=== PATIENT | female | born 1960 | race Caucasian/White ===

== ENCOUNTER → 2020-01-23 08:02 | Outpatient (CLI) | payer OTHER, SELFPAY ==
--- NOTE | 2020-01-23 | DI.RAD.S_ITS ---
PROCEDURE: XR LUMBAR SPINE 2-3V INDICATIONS: CHRONIC LOW BACK PAIN TECHNIQUE: 3 views of the lumbar spine were acquired. COMPARISON: None. FINDINGS: Bones: 5 lwm-hko-yhssadt vertebrae are present. No vertebral body compression fractures. No suspicious bony lesions. Minimal to mild dextroconvex scoliotic curvature is seen. No focal AP alignment abnormality is seen. The disc heights are well preserved. Lower lumbar spine facet arthropathy is seen. Sacroiliac joint degenerative changes can be seen. Soft tissues: Overlying bowel gas pattern is normal. No suspicious soft tissue calcifications. IMPRESSION: Age-appropriate lumbar spine degenerative changes are seen, with facet arthropathy. The disc heights are well preserved. Dictated by: Ez Holloway M.D. on 01/23/2020 at 8:35 Approved by: Ez Holloway M.D. on 01/23/2020 at 8:36
== END ==
PROVIDERS: Referring Provider Chiropractor; Visit Provider Chiropractor
DX: M54.5 Low back pain (principal); M47.816 Spondylosis without myelopathy or radiculopathy, lumbar region; G89.29 Other chronic pain
CPT/HCPCS: 72100

== ENCOUNTER → 2020-08-17 17:08 | Outpatient (CLI) | payer OTHER, SELFPAY ==
--- NOTE | 2020-08-17 | DI.MG.S_ITS ---
BILATERAL DIGITAL SCREENING MAMMOGRAM 3D/2D WITH CAD: 08/17/2020 CLINICAL: Routine screening. Comparison is made to exam dated: 06/21/2013 [facility]. There are scattered fibroglandular elements in both breasts. Current study was also evaluated with a Computer Aided Detection (CAD) system. There are benign vascular calcifications in both breasts. No significant masses, calcifications, or other findings are seen in either breast. There has been no significant interval change. IMPRESSION: BENIGN There is no mammographic evidence of malignancy. A 1 year screening mammogram is recommended. This exam was interpreted at Station ID: [id number]. NOTE: For mammograms, a report in lay terms will be sent to the patient. Approximately 15% of breast malignancies will not be visualized mammographically. In the management of a palpable breast mass, a negative mammogram must not discourage biopsy of a clinically suspicious lesion. Electronically Signed By: Salvador watson/iona:08/18/2020 08:13:55 letter sent: Normal Exam ACR BI-RADS Category 2: Benign Finding(s) 3342F
== END ==
PROVIDERS: PCP Student in an Organized Health Care Education/Training Program; Referring Provider Student in an Organized Health Care Education/Training Program; Visit Provider Student in an Organized Health Care Education/Training Program
DX: Z12.31 Encounter for screening mammogram for malignant neoplasm of breast (principal)
CPT/HCPCS: 77063; 77067

== ENCOUNTER → 2022-02-13 15:57 | Outpatient (CLI) | payer OTHER, SELFPAY ==
[2022-02-13 17:35] LABS: COVID19 -Nasal RAPID Negative (Negative)
== END ==
PROVIDERS: PCP Internal Medicine; Visit Provider Obstetrics & Gynecology
DX: Z20.822 Contact with and (suspected) exposure to COVID-19 (principal); Z01.812 Encounter for preprocedural laboratory examination
CPT/HCPCS: 87635

== ENCOUNTER 2022-02-14 06:23 | Day surgery (SDC) | payer OTHER, SELFPAY ==
[2022-02-08 10:00] VITALS: BMI 23.6
[2022-02-14] VITALS (7 sets, daily range): BP systolic 107–144; BP diastolic 69–90; PULSE 58–85; RESP 10–19; TEMP 36.3–36.4; O2SAT 99–100; BMI 23.6
--- NOTE | 2022-02-14 | PATH_ITS ---
[facility] Accession Number: [id number] . 01 Material submitted: . PART A: cervix - ECTOCERVIX TAGGED AT 1200 PART B: endocervix - ENDOCERVIX - TAGGED AT 0600 . 01 Diagnosis: A. Uterine Cervix, Ectocervix Tagged at 12 o'clock, LEEP Excision: Squamous dysplasia involving areas of atrophy most consistent with focal high-grade squamous intraepithelial lesion (WILL-2/moderate dysplasia), see microscopic description. Negative for glandular dysplasia and invasive carcinoma. Changes suggestive of prior biopsy site also present. Surgical margins: Negative for dysplasia and malignancy. . B. Uterine Cervix, Endocervix Tagged at 6 o'clock, LEEP Excision: Benign endocervical mucosa. Negative for significant dysplasia and malignancy. Surgical margins: Negative for dysplasia and malignancy. . . . . . [facility] 02/25/2022 1715 Local . 01 Electronically signed: . Nirali Meek MD, Pathologist NPI- [id number] . 01 Gross description: . A. The specimen is received in formalin labeled with the patient's name and ectocervix tagged at 12 o'clock, and consists of an oriented circular fragment of cervix with a suture at 12 o'clock per the requisition and measuring 1.2 cm from 12 to 6 o'clock, 1.2 cm from 3 to 9 o'clock, and is excised to a depth of 0.5 cm. The cervical os is circular and measures 0.3 cm in diameter. The cervix is pink-carcamo and slightly congested. The endocervical margin is inked orange while the remaining stromal margins are inked blue. The specimen is radially sectioned and submitted entirely as follows: . A1: 12 to 3 o'clock. A2: 3 to 6 o'clock. A3: 6 to 9 o'clock. A4: 9 to 12 o'clock. . B. The specimen is received in formalin labeled with the patient's name and endocervix tagged at 6 o'clock, and consists of an oriented circular fragment of cervix with a suture designating 6 o'clock per the requisition and measuring 1.0 cm from 12 to 6 o'clock, 0.9 cm from 3 to 9 o'clock, and is excised to a depth of 0.3 cm. No ectocervix is identified. The cervical os is slit-like and measures 0.4 cm in diameter. The concave surface is inked black while the convex surface is inked orange at the endocervical margin and blue for the remaining stromal margins. The specimen is radially sectioned and submitted entirely as follows: . B1: 12 to 3 o'clock. B2: 3 to 6 o'clock. B3: 6 to 9 o'clock. B4: 9 to 12 o'clock. ([id number]) /MRV 02/15/2022 [facility]0 Local . 01 Microscopic: . Part A: Multiple deeper levels have been examined, and p16 immunostain was performed on block A3 showing focal, abnormal overexpression on the area of interest. This result along with the morphology, supports the diagnosis. . * This test was developed and its performance characteristics determined by [employer]. It has not been cleared or approved by the U.S. Food and Drug Administration. The FDA has determined that such clearance or approval is not necessary. This test is used for clinical purposes. It should not be regarded as investigational or for research. . 01 Pathologist provided ICD-10: N87.1 . 01 CPT . 711760, 961218, P26045 Specimen Comment: A courtesy copy of this report has been sent to [phone] Performed at: 01 [facility] [address], [place], [place] [id number] MD Yoshi Helton MD Phone: [phone]
--- NOTE | 2022-02-14 07:21 | SUR.OPER ---
Lithotomy on padded OR bed, head on pillow, arms secured on padded arm boards at <90 degrees abduction. Legs secured in padded yellow fins stirrups.
[2022-02-14] MEDS: LACTATED RINGERS 1,000 ML 100 ML IV (07:49)
--- NOTE | 2022-02-14 07:56 | P.HP_ITS ---
History of Present Illness History of Present Illness Date Patient Seen: 02/14/22 Time Patient Seen: 07:56 Chief complaint: LEEP CONE BX OF CERVIX Narrative: Patient is a 61-year-old 8 para 6 with high-grade ROMANA on Pap and with a negative ECC. Transformation zone not visualized on colposcopy. Due to this discrepancy patient is here for LEEP cone biopsy of the cervix. Patient History Medical History (Updated 01/08/22 @ 16:39 by Kika Reyes MD) Insomnia, unspecified Insomnia, unspecified Obstructive sleep apnea of adult Snoring Surgical History Status post appendectomy Family & Social History Family History Father Age: 80 Diabetes mellitus Heart disease Grandfather Heart disease Social History: household members significant other lives independently Yes caregiver/support person No Tobacco & Substance use: Smoking Status Never smoker alcohol intake current alcohol intake frequency a few times a week Substance Use Type does not use Meds Home Medications and Allergies Home Medications Medication Instructions Recorded Confirmed Type cholecalciferol (vitamin D3) 250 10,000 unit PO #0 tabs 12/20/15 01/08/22 History mcg (10,000 unit) tablet multivitamin (Multiple Vitamins 1 tab PO QDAY #0 tabs 12/20/15 02/14/22 History tablet) omega-3 fatty acids 500 mg-dha 270 ##0 12/20/15 01/08/22 History mg-epa 135 mg capsule (Ovega-3) Resmed AirSense 10 Auto CPAP #1 ea 05/19/18 02/14/22 History valacyclovir 1 gram tablet 1 02/14/22 History (Valtrex) Allergies Allergy/AdvReac Type Severity Reaction Status Date / Time No Known Drug Allergies Allergy Verified 02/14/22 07:22 Exam Vital Signs (past 8 hours): - 02/14/22 07:30 Temperature 97.6 F Pulse Rate 85 Respiratory Rate 18 Blood Pressure 144/90 H Pulse Oximetry 100 Oxygen Delivery Method Room Air Oxygen Delivery Method Room Air Narrative Exam Narrative: HEENT: No thyromegaly, no anterior cervical or supraclavicular lymphadenopathy. Lungs:Clear to auscultation bilaterally, no wheezes. Cardiovascular: Regular rate and rhythm, no murmurs, rubs, or gallops. Abdomen: Well-healed scars. No hepatosplenomegaly. No masses palpable. External genitalia: Normal Vagina: Normal Cervix: Normal Bimanual exam: 5 Week size uterus. Mobile. Extremities: No edema Assessment & Plan Assessment & Plan narrative: Assessment: 61-year-old 8 para 6 with a discrepancy between Pap smear with high- grade ROMANA and ECC which was normal Plan: LEEP cone biopsy of the cervix The risks, benefits, and alternatives to the procedure were explained to the patient. The risks including bleeding and infection. She understands these risks and agrees to proceed. A full par Q was held and consent form was signed. COVID-19 COVID-19 status: Negative Result date/Date tested (Pos, Neg/Pending): 02/13/22 Time Spent With Patient Time with patient: less than 30 minutes Critical Care time: I spent a total of [] minutes of critical care time on this patient's care today; this time is exclusive of procedural time.
--- NOTE | 2022-02-14 07:59 | PM.PREOP ---
Pre-operative Note COVID-19 COVID-19 status: Negative Result date/Date tested (Pos, Neg/Pending): 02/13/22 Criteria for continued procedure: Non-surgical alternatives not available or appropriate per current SOC Interval Note History & Physical reviewed/Exam performed by Physician: Yes Changes to H&P: No H&P completed within 30 days and has changed as indicated here:: 02/14/22
[2022-02-14] MEDS: POTASSIUM IODIDE/IODINE 473 ML SOLUTION TOP (08:26)
--- NOTE | 2022-02-14 09:00 | P.OP_ITS ---
Operative Date/Time/Diagnoses Date of procedure: 02/14/22 Time of procedure: 09:00 Pre-op diagnosis: High-grade ROMANA on Pap Negative ECC Post-op diagnosis: same Procedure & Clinicians Procedure: Procedures Operation Date: 02/14/22 07:45 Actual Procedure Side Surgeon james COLLIER cone bx of cervix Kika Reyes MD Indications: High-grade ROMANA on Pap, negative ECC, transformation zone not visualized Surgeon: Kika Reyes Anesthesia Type: General (LMA) Operative Notes Findings: No Lugol's light areas on the ectocervix Closure Type: not applicable Specimen(s): other (Cone bx specimen, Ectocervix tagged at 12 o'clock, Endocervix tagged at 6 o'clock) Estimated blood loss (mL): 5 Blood products transfused: none Procedure in detail: After informed consent obtained, the patient was taken to the operating room and placed in the dorsal supine position. After LMA general anesthesia was achieved, she was placed in the dorsal lithotomy position, and prepped and draped in the usual sterile fashion. A time-out was performed. A plastic coated bivalve speculum was placed into the vagina. A plastic coated single- tooth tenaculum was placed on the anterior lip of the cervix. Lugol's was applied to the cervix. There were no Lugol's light areas on the ectocervix visualized. Using the 1.5 cm loop, the ectocervix and endocervix surrounding the cervical os were excised using settings at 80 cut and 60 cautery. Using a 1 cm loop, the endocervix was excised. Using the ball cautery, the base of the cone was cauterized for hemostasis. Hemostasis was achieved. The plastic coated single-tooth tenaculum was removed from the anterior lip of the cervix. The plastic coated bivalve speculum was removed from the vagina. The specimen was tagged at 12:00 o,clock on the ectocervix and 6:00 o,clock on the endocervix. Sponge, lap and instrument count is correct x 2. The patient tolerated the procedure well and was taken to PACU in stable condition. Complications: none Post-operative Condition: stable Disposition: PACU Plan for aftercare: Home after recovery
== END 2022-02-14 09:25 | disposition home or self-care (01) ==
PROVIDERS: PCP Internal Medicine; Referring Provider Obstetrics & Gynecology; Visit Provider Obstetrics & Gynecology
PROC: 0UBC7ZZ Excision of Cervix, Via Natural or Artificial Opening (ICD-10-PCS; CPT 57522; principal; 2022-02-14 07:45)
DX: N87.1 Moderate cervical dysplasia (principal)
CPT/HCPCS: 57522; J1100; J2250; J2405; J2704; J3010

== ENCOUNTER → 2022-12-20 15:34 | Outpatient (CLI) | payer OTHER, SELFPAY ==
--- NOTE | 2022-12-20 15:37 | DI.RAD.S_ITS ---
PROCEDURE: XR KNEE RT 3V INDICATIONS: bilateral knee pain TECHNIQUE: 3 views of the knee were acquired. COMPARISON: None. FINDINGS: Bones: No fractures or dislocations. No suspicious bony lesions. Minimal to mild medial as well as patellofemoral as well as minimal lateral compartment narrowing. Minimal periarticular osteophytes. No erosions. Soft tissues: Mild joint effusion. No suspicious soft tissue calcifications. IMPRESSION: Minimal to mild tricompartmental arthritic change. Dictated by: Luz Elena Villarreal M.D. on 12/20/2022 at 19:40 Approved by: Luz Elena Villarreal M.D. on 12/20/2022 at 19:41
--- NOTE | 2022-12-20 15:37 | DI.RAD.S_ITS ---
PROCEDURE: XR KNEE LT 3V INDICATIONS: bilateral knee pain TECHNIQUE: 3 views of the knee were acquired. COMPARISON: None. FINDINGS: Bones: No fractures or dislocations. No suspicious bony lesions. Ceau-zc-spoywssn medial and patellofemoral with minimal lateral compartment narrowing. Minimal periarticular osteophytes. No erosions. Soft tissues: Mild joint effusion. No suspicious soft tissue calcifications. IMPRESSION: Tricompartmental arthritic change most severe medially. Dictated by: Luz Elena Villarreal M.D. on 12/20/2022 at 19:39 Approved by: Luz Elena Villarreal M.D. on 12/20/2022 at 19:40
== END ==
PROVIDERS: PCP Family Medicine; Referring Provider Family Medicine; Visit Provider Family Medicine
DX: M25.561 Pain in right knee (principal); M25.562 Pain in left knee; M25.461 Effusion, right knee; M25.462 Effusion, left knee
CPT/HCPCS: 73562

== ENCOUNTER → 2023-01-28 10:22 | Outpatient (CLI) | payer OTHER, SELFPAY ==
[2023-01-28 11:02] LABS: Add Manual Diff / Slide Review NO; Basophils Absolute Auto 0 /uL (0-100); Eosinophils Absolute Auto 100 /uL (0-450); Eosinophils Percent Auto 3.5 % (2-4); Hematocrit 43.7 % (36-46); Hemoglobin 14.8 g/dL (12.0-16.0); Lymphocytes Absolute Auto 2000 /uL (1100-4500); Lymphocytes Percent Auto 45.9 % (25-40); Mean Corpuscular HGB Conc 33.8 % (30-36); Mean Corpuscular Hemoglobin 31.3 PG (26-34); Mean Corpuscular Volume 92.5 fL (80-100); Monocytes Absolute Auto 400 /uL (0-900); Neutrophils Absolute Auto 1700 /uL (1500-7000); Neutrophils Percent Auto 40.6 % (50-75); Platelet Count 217 X10^3/uL (150-400); Red Blood Cell Count 4.73 X10^6/uL (4.0-5.2); Red Cell Distribution Width 13.7 % (11.6-14.8); White Blood Cell Count 4.3 X10^3/uL (4.5-11.0)
[2023-01-28 11:23] LABS: Alanine Aminotransferase 66 IU/L (<35); Albumin 4.8 g/dL (3.5-5.0); Albumin Globulin Ratio 1.3 (1.0-2.8); Alkaline Phosphatase 97 U/L (38-126); Aspartate Aminotransferase 38 IU/L (14-36); BUN Creatinine Ratio 20.3 (6-22); Bilirubin Total 0.5 mg/dL (0.2-1.3); Blood Urea Nitrogen 12 mg/dL (7-17); Calcium 10.1 mg/dL (8.4-10.2); Carbon Dioxide 24 mmol/L (22-32); Chloride 103 mmol/L (98-107); Cholesterol 266 mg/dL (140-199); Estimated Glomerular Filt Rate > 60 mL/min (>60); Globulin 3.7 g/dL (1.7-4.1); Glucose 104 mg/dL (80-110); HDL Cholesterol 45 mg/dL (40-60); HEMOLYSIS 16 (0-50); LDL Cholesterol Calculated 200 mg/dL (<100); Potassium 4.3 mmol/L (3.4-5.1); Sodium 139 mmol/L (137-145); Total Protein 8.5 g/dL (6.3-8.2); Triglycerides 104 mg/dL (35-150)
[2023-01-28 11:51] LABS: Thyroid Stimulating Hormone 1.05 uIU/mL (0.47-4.68)
[2023-01-28 12:34] LABS: Estradiol, Total 16.8 pg/mL
[2023-02-04 23:23] LABS: Percent Free Testosterone 1.38 % (0.50-2.80); Testosterone Free 0.21 ng/dL (0.10-0.85); Testosterone Total 15.4 ng/dL (7.0-40.0)
== END ==
PROVIDERS: PCP Family Medicine; Referring Provider Family Medicine; Visit Provider Family Medicine
DX: E66.9 Obesity, unspecified (principal); E88.810 Metabolic syndrome; E78.00 Pure hypercholesterolemia, unspecified; R73.03 Prediabetes
CPT/HCPCS: 36415; 80053; 80061; 82670; 84402; 84403; 84443; 85025

== ENCOUNTER 2023-10-09 11:28 | Day surgery (SDC) | payer OTHER, SELFPAY ==
[2023-10-07 08:44] VITALS: BMI 26.2
--- NOTE | 2023-10-09 | PATH_ITS ---
[facility] Accession Number: [id number] No. of containers..01 Tissue . 01 Material submitted: . ectocervix - ECTOCERVIX . 01 Diagnosis: ECTOCERVIX (SUBMITTED TWO ORIENTED TISSUE FRAGMENTS): Oriented cone fragment that measures 1.3 x 1.3 x 0.6 cm at gross examination: - Squamous mucosa present in the 12-3 and 9-12 o'clock quadrants. - No dysplasia identified; atrophic change present. - No dysplasia identified at tissue margins. - No invasive tumor identified. . Oriented fragment that measures 1.5 x 1.1 x 0.8 cm at gross examination: - Small focus of high-grade squamous intraepithelial lesion / WILL-2 in the 3 to 6 o'clock quadrant. - Separate regions of low-grade squamous intraepithelial lesion / WILL-1 in the 12-3, 3-6, 6-9, and 9-12 o'clock quadrants. - No well preserved endocervical glandular epithelium is identified. - Low grade squamous intraepithelial lesion / WILL-1 is present at the green inked margin in the 12-3, 3-6, and 6-9 o'clock quadrants. - The orange-inked margin is negative for dysplasia. - Background atrophic change. - No invasive tumor identified. [facility] 10/16/2023 1634 Local . 01 Comment: The biopsy results correlate with Pap smear [id number]. . 01 Electronically signed: . Viry Christian MD, Pathologist NPI- [id number] . 01 Gross description: . Received in formalin with two patient identifiers and ectocervix, endocervix, are two oriented fragments of cervix. The fragment with the short suture is irregularly shaped and partially circular with a suture designating 6 o'clock per the requisition. There is ectocervix on the specimen which is pink-carcamo and wrinkled. The presumed endocervical margin is inked orange while the remaining stromal margins are inked blue. The specimen is radially sectioned. This first fragment measures 1.3 cm from 12-6, 1.3 cm from 3-9, and up to 0.6 cm thick. . The second fragment is intact and circular with a long suture designating 12 per the requisition, and measuring 0.8 cm from 12-6, 1.5 cm from 3-9, and 1.1 cm thick. Ectocervix is present and is pink and finely granular while the os is slit-like and measures 0.4 cm in diameter. The endocervical margin is inked orange while the remaining stromal margins are inked green, and the specimen is radially sectioned. Submitted entirely as follows: A1: First fragment 12-3. A2: First fragment 3-6. A3: First fragment 6-9. A4: First fragment 9-12. A5: Second fragment 12-3. A6: Second fragment 3-6. A7: Second fragment 6-9. A8: Second fragment 9-12. (AG:[id number]) /MRV 10/10/2023 155 Local . 01 Microscopic: . An immunohistochemical stain for p16 is performed to evaluate for block reactivity. The control stained with appropriate reactivity. . RESULTS: Blocks A1-A4 (first described fragment): P16: Negative for block immunostaining. . The absence of p16 block immunostaining mitigates against the presence of high risk HPV DNA in this biopsy. . Blocks A5-A8 (second described fragment): P16: Small focus of block immunostaining present in the 3 to 6 o'clock quadrant of the second described tissue fragment (A6). . P16 block immunostaining supports the presence of high risk HPV DNA in this biopsy. . . * This test was developed and its performance characteristics determined by [employer]. It has not been cleared or approved by the U.S. Food and Drug Administration. The FDA has determined that such clearance or approval is not necessary. This test is used for clinical purposes. It should not be regarded as investigational or for research. . 01 Pathologist provided ICD-10: N87.0, N87.1 . 01 CPT . 427234, G53343 Specimen Comment: A courtesy copy of this report has been sent to [phone] Performed at: 01 [facility] [address], [place], [place] [id number] MD Yoshi Helton MD Phone: [phone]
[2023-10-09 12:00] VITALS: BP 145/89; PULSE 76; RESP 16; TEMP 36.4; O2SAT 99; BMI 25.7
[2023-10-09] MEDS: LACTATED RINGERS 1,000 ML 42 ML IV (12:12)
--- NOTE | 2023-10-09 12:37 | P.HPOB_ITS ---
History of Present Illness History of Present Illness Reason for admission: other (Recurrent high-grade dysplasia of the cervix) Narrative: Escobar Dai is a 63 year old female 8 para 6 who presents for repeat LEEP cone biopsy of the cervix due to recurrent high-grade dysplasia. [facility] Medical History (Updated 10/07/23 @ 08:50 by Ekta Fisher RN) History of COVID-19 (11/17/21) Herpes (~1979) Papanicolaou smear of cervix with positive high risk human papilloma virus (HPV) test (~07/2020) Insomnia, unspecified Insomnia, unspecified Obstructive sleep apnea of adult Snoring Surgical History (Updated 06/22/23 @ 21:03 by Kika Reyes MD) Anesthesia H/O LEEP (~2021) Status post appendectomy (~1983) Family History (Updated 05/16/22 @ 21:42 by [place]) Father Age: 81 Diabetes mellitus Heart disease Grandfather Heart disease Mother Diabetes mellitus Heart disease Brother Heart disease Social History (Updated 06/25/18 @ 12:[address] [facility]) marital status: unmarried,living together details: partner Omega Allred, lives in [place]. She has 5 daughters, 1 son number of children: 6 household members: spouse lives independently: Yes caregiver/support person: No housing: house occupational status: employed Smoking Status: Never smoker second hand exposure: Yes (childhood ) alcohol intake: current substance use type: does not use Meds Home Medications and Allergies Home Medications Medication Instructions Recorded Confirmed Type cholecalciferol (vitamin D3) 250 10,000 unit PO DAILY #0 tabs 12/20/15 10/09/23 History mcg (10,000 unit) tablet multivitamin (Multiple Vitamins 1 tab PO QDAY #0 tabs 12/20/15 09/29/23 History tablet) omega-3 fatty acids 500 mg-dha 270 ##0 12/20/15 09/29/23 History mg-epa 135 mg capsule (Ovega-3) [place]APE 2,280 mg PO DAILY 12/20/22 09/29/23 History SPM ACTIVE 2 cap PO DAILY 12/20/22 09/29/23 History calcium carb,cit 300 mg-D3 200 1 tab PO 12/20/22 09/29/23 History unit-min no.34-genistein 13.5 mg tablet (Citracal Plus Bone Density Builder) lactobacillus cap PO 12/20/22 09/29/23 History hushc-jlxiic-gjcyadlp protein 15 billion cell-170 mg cap (Ultra Dang Plus) methyltetrahydrofolate glucos 1,330 mcg dfe PO 12/20/22 09/29/23 History uqhslsvd-zhq-dmsug-lut-dato703 PO 12/20/22 09/29/23 History [PhytoMulti] omega 4-hmf-okk-fish oil 290 cap PO 12/20/22 09/29/23 History mg-430 mg-1.4 gram capsule (EPA-DHA 720) vitamin B complex PO 12/20/22 09/29/23 History valacyclovir 1 gram tablet 1,000 mg PO DAILY #90 tabs 07/22/23 09/29/23 Rx Allergies Allergy/AdvReac Type Severity Reaction Status Date / Time amoxicillin [From Augmentin] Allergy Severe Hives Verified 10/09/23 11:58 clavulanic acid Allergy Severe Hives Verified 10/09/23 11:58 [From Augmentin] Exam Vital Signs (past 8 hours): - 10/09/23 12:00 Temperature 97.6 F Pulse Rate 76 Respiratory Rate 16 Blood Pressure 145/89 H Pulse Oximetry 99 Oxygen Delivery Method Room Air Oxygen Delivery Method Room Air Narrative Exam Narrative: HEENT: No thyromegaly, no anterior cervical or supraclavicular lymphadenopathy. Lungs:Clear to auscultation bilaterally, no wheezes. Cardiovascular: Regular rate and rhythm, no murmurs, rubs, or gallops. Abdomen: Well-healed scars. No hepatosplenomegaly. No masses palpable. External genitalia: Normal Vagina: Normal Cervix: Normal Bimanual exam: 6 Week size uterus. Extremities: No edema Assessment & Plan Assessment & Plan narrative: Assessment: 63-year-old 8 para 6 with recurrent high-grade dysplasia of the cervix Cervical stenosis Plan: LEEP cone biopsy of the cervix The risks, benefits, and alternatives to the procedure were explained to the patient. The risks including bleeding and infection. She understands these risks and agrees to proceed. A full par Q was held and consent form was signed
--- NOTE | 2023-10-09 12:39 | PM.PREOP ---
Pre-operative Note Interval Note History & Physical reviewed/Exam performed by Physician: Yes Changes to H&P: No H&P completed within 30 days and has changed as indicated here:: 10/09/23
--- NOTE | 2023-10-09 12:59 | SUR.OPER ---
Lithotomy on padded OR bed, head on pillow, arms secured on padded arm boards at <90 degrees abduction. Legs secured in padded yellow fins stirrups.
[2023-10-09] MEDS: POTASSIUM IODIDE/IODINE 473 ML SOLUTION 10 ML TOP (13:06)
[2023-10-09 13:40] VITALS: BP 108/70; PULSE 96; RESP 14; TEMP 36.4; O2SAT 93
--- NOTE | 2023-10-09 13:44 | P.OP_ITS ---
Operative Date/Time/Diagnoses Date of procedure: 10/09/23 Time of procedure: 13:45 Pre-op diagnosis: Recurrent high-grade dysplasia of the cervix Post-op diagnosis: same Procedure & Clinicians Procedure: Procedures Operation Date: 10/09/23 12:45 Actual Procedure Side Surgeon p LEEP Procedure cone biopsy of the cervix Kika Reyes MD Indications: Recurrent high-grade dysplasia Stenotic cervix Surgeon: Kika Reyes Anesthesia Type: General (LMA) Operative Notes Findings: Difficult to find the cervix Used an #11 blade to open the cervix Closure Type: primary Specimen(s): other (Ectocervix with stitch at 12:00 o'clock, endocervix with stitch at 6 o'clock) Estimated blood loss (mL): 15 Blood products transfused: none Procedure in detail: After informed consent was obtained, the patient was taken to the operating room where she was placed in the dorsal supine position. After adequate LMA general anesthesia was achieved, she was placed in the dorsal lithotomy position, and prepped and draped in the usual sterile fashion. A time-out was performed. A plastic coated bivalve speculum was placed into the vagina. The anterior lip of the cervix was grasped with a single-tooth tenaculum. It was difficult to find the cervical os. An 11 blade was used to open and adhesed area and the os was seen. Using the 15 mm loop, and settings at 80 cut and 60 cautery, the LEEP cone biopsy was done. Using the same loop a second specimen was obtained in the endocervix. The ectocervix was tagged at 12:00 p.m. with a suture. The endocervix was tagged at 6:00 a.m. with a short suture. The ball cautery was used for hemostasis. At the 9 to 11 o'clock position there was still some bleeding. A whip stitch interlocking suture was placed with 2-0 chromic and hemostasis was achieved. A piece of Gelfoam was placed into the base of the cone. Using 2-0 chromic, a loose suture was placed between 3 and 9:00 a.m. on the cervix to keep the Gelfoam in place. Hemostasis was achieved. The single- tooth tenaculum was removed from the anterior lip of the cervix. The bivalve speculum was removed from the vagina. All personnel in the room were using 3-0 masks. There were 3 sources of suction during the LEEP cone biopsy. Complications: none Post-operative Condition: stable Disposition: PACU Plan for aftercare: Home after recovery
[2023-10-09 13:45] VITALS: BP 115/75; PULSE 92; RESP 13; O2SAT 98
[2023-10-09 13:51] VITALS: BP 131/87; PULSE 89; RESP 20; O2SAT 99
== END 2023-10-09 14:01 | disposition home or self-care (01) ==
PROVIDERS: PCP Family Medicine; Referring Provider Obstetrics & Gynecology; Visit Provider Obstetrics & Gynecology
PROC: 0UBC7ZZ Excision of Cervix, Via Natural or Artificial Opening (ICD-10-PCS; CPT 57522; principal; 2023-10-09 12:45)
DX: N87.0 Mild cervical dysplasia (principal); N87.1 Moderate cervical dysplasia
CPT/HCPCS: 57522; J1100; J1885; J2405; J2704; J3010

== ENCOUNTER → 2024-03-05 10:42 | Outpatient (CLI) | payer OTHER, SELFPAY ==
--- NOTE | 2024-03-05 10:44 | DI.MG.S_ITS ---
BILATERAL DIGITAL SCREENING MAMMOGRAM 3D/2D WITH CAD: 03/05/2024 CLINICAL: Routine screening. Comparison is made to exams dated: 08/17/2020 mammogram and 06/21/2013 mammogram - [facility]. There are scattered areas of fibroglandular density (category b / 25%-50% glandular tissue). Current study was also evaluated with a Computer Aided Detection (CAD) system. There are benign vascular calcifications in both breasts. No significant masses, calcifications, or other findings are seen in either breast. There has been no significant interval change. IMPRESSION: BENIGN There is no mammographic evidence of malignancy. A 1 year screening mammogram is recommended. Based on the Tyrer Cuzick model (a risk assessment model) the patient's lifetime risk is 5.7% and her 10 year risk is 2.5%. According to the ACR, ACS, and NCCN guidelines, an annual breast MRI exam along with mammogram is recommended if the patient's lifetime risk is 20% or greater. This exam was interpreted at Station ID: [id number]. NOTE: For mammograms, a report in lay terms will be sent to the patient. Approximately 15% of breast malignancies will not be visualized mammographically. In the management of a palpable breast mass, a negative mammogram must not discourage biopsy of a clinically suspicious lesion. Electronically Signed By: Eleazar [email or web address]:03/06/2024 00:00:19 letter sent: Normal Exam ACR BI-RADS Category 2: Benign
[2024-03-08 11:10] LABS: Fecal Immunochemical Test Negative (Negative)
== END ==
PROVIDERS: PCP Family Medicine; Referring Provider Family Medicine; Visit Provider Family Medicine
DX: Z12.31 Encounter for screening mammogram for malignant neoplasm of breast (principal); Z12.11 Encounter for screening for malignant neoplasm of colon
CPT/HCPCS: 77063; 77067; 82274